=== PATIENT | female | born 1960 | race American Indian/Alaskan Native ===

== ENCOUNTER 2017-04-16 02:10 | Emergency (ER) | payer MEDICAID ==
[2017-04-16] MEDS ORDERED: XANAX PO ONE (02:42)
[2017-04-16] MEDS ORDERED: NACL 0.9% 1000 ML 1,000 ML IV ONE (03:03)
[2017-04-16 03:24] LABS: Basophils % (Auto) 0.5 % (0.0-1.8); Eosinophils % (Auto) 0.2 % (0.0-4.3); Hematocrit 40.8 % (30.3-42.9); Hemoglobin 13.6 gm/dl (10.1-14.3); Mean Corpuscular HGB Conc 33 % (30-34); Mean Corpuscular Hemoglobin 31 pg (28-32); Mean Corpuscular Volume 94 fl (79-97); Platelet Count 216 K/mm3 (140-440); Red Blood Count 4.34 M/mm3 (3.65-5.03); Red Cell Distribution Width 14.1 % (13.2-15.2); White Blood Count 8.1 K/mm3 (4.5-11.0)
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
[2017-04-16 03:48] LABS: Urine Drugs of Abuse Note Disclamer
[2017-04-16 04:05] LABS: Bilirubin,Urine NEG (Negative); Blood,Urine NEG (Negative); Ketones,Urine NEG (Negative); Leukocyte Esterase,Urine NEG (Negative); Nitrite,Urine NEG (Negative); Protein,Urine <15 mg/dL mg/dL (Negative); Urobilinogen,Urine < 2.0 mg/dL (<2.0)
[2017-04-16 04:13] LABS: Alanine Aminotransferase 9 units/L (7-56); Albumin 3.9 g/dL (3.9-5); Albumin/Globulin Ratio 1.5 %; Alkaline Phosphatase 95 units/L (35-129); Anion Gap 15 mmol/L; BUN/Creatinine Ratio 12.85; Bilirubin,Total < 0.20 mg/dL (0.1-1.2); Blood Urea Nitrogen 9 mg/dL (7-17); Calcium 10.6 mg/dL (8.4-10.2); Carbon Dioxide 26 mmol/L (22-30); Chloride 105.4 mmol/L (98-107); Glucose 110 mg/dL (65-100); Sodium 143 mmol/L (137-145); Total Protein 6.5 g/dL (6.3-8.2)
[2017-04-16] MEDS ORDERED: K-DUR PO ONE (04:36)
--- NOTE | 2017-04-16 04:43 | Cat Scan Report ---
FINAL REPORT PROCEDURE: CT HEAD/BRAIN WO CON TECHNIQUE: Computerized tomography of the head was performed without contrast material. HISTORY: altered ms COMPARISON: No prior studies are available for comparison. FINDINGS: Skull and scalp: Normal. Paranasal sinuses: Normal. Ventricles and subarachnoid spaces: Normal. Cerebrum: No evidence of hemorrhage, acute infarction or mass . Cerebellum and brainstem: No evidence of hemorrhage, acute infarction or mass. Vasculature: Normal. Comments: None. IMPRESSION: Normal Examination
[2017-04-16 07:00] VITALS: BP 111/53
== END 2017-04-16 07:10 | disposition home or self-care (01) ==
LOC: ED 02:10
DX: R55 Syncope and collapse (principal); J45.909 Unspecified asthma, uncomplicated; F12.10 Cannabis abuse, uncomplicated
CPT/HCPCS: 36415; 70450; 80053; 80307; 81001; 82140; 85025; 93005; 93010; 96360; 96361; 99285; J7030

== ENCOUNTER 2017-05-01 22:33 | Emergency (ER) | payer MEDICAID ==
[2017-05-01 22:54] VITALS: BP 123/79
[2017-05-01 23:37] LABS: Basophils % (Auto) 0.4 % (0.0-1.8); Eosinophils % (Auto) 0.2 % (0.0-4.3); Hematocrit 38.7 % (30.3-42.9); Hemoglobin 13.1 gm/dl (10.1-14.3); Mean Corpuscular HGB Conc 34 % (30-34); Mean Corpuscular Hemoglobin 32 pg (28-32); Mean Corpuscular Volume 94 fl (79-97); Platelet Count 224 K/mm3 (140-440); Red Blood Count 4.12 M/mm3 (3.65-5.03); Red Cell Distribution Width 13.7 % (13.2-15.2); White Blood Count 9.1 K/mm3 (4.5-11.0)
[2017-05-01 23:38] LABS: Anion Gap 16 mmol/L; BUN/Creatinine Ratio 13.75; Blood Urea Nitrogen 11 mg/dL (7-17); Calcium 11.5 mg/dL (8.4-10.2); Carbon Dioxide 27 mmol/L (22-30); Chloride 100.6 mmol/L (98-107); Glucose 113 mg/dL (65-100); Potassium 3.6 mmol/L (3.6-5.0); Sodium 140 mmol/L (137-145)
[2017-05-02 01:08] LABS: Bilirubin,Urine NEG (Negative); Blood,Urine NEG (Negative); Ketones,Urine NEG (Negative); Leukocyte Esterase,Urine LG (Negative); Mucus,Urine FEW /HPF; Nitrite,Urine NEG (Negative); Uric Acid Crystals,Urine 3+; Urobilinogen,Urine < 2.0 mg/dL (<2.0)
--- NOTE | 2017-05-02 14:56 | ED Elopement Review ---
ED Pt Elopement review - Results review Lab results: Laboratory Tests 05/01/17 05/01/17 05/01/17 23:06 23:06 23:47 WBC 9.1 RBC 4.12 Hgb 13.1 Hct 38.7 MCV 94 MCH 32 MCHC 34 RDW 13.7 Plt Count 224 Lymph % (Auto) 18.8 [place] % (Auto) 8.3 H Eos % (Auto) 0.2 Baso % (Auto) 0.4 Lymph # 1.7 [place] # 0.7 Eos # 0.0 Baso # 0.0 Seg Neutrophils % 72.3 H Seg Neutrophils # 6.5 Sodium 140 Potassium 3.6 Chloride 100.6 Carbon Dioxide 27 Anion Gap 16 BUN 11 Creatinine 0.8 Estimated GFR > 60 BUN/Creatinine Ratio 13.75 Glucose 113 H Calcium 11.5 H Urine Color Yellow Urine Turbidity Slightly-cloudy Urine pH 6.0 Ur Specific [place] 1.012 Urine Protein 30 mg/dl Urine Glucose (UA) Neg Urine Ketones Neg Urine Blood Neg Urine Nitrite Neg Urine Bilirubin Neg Urine Urobilinogen < 2.0 Ur Leukocyte Esterase Lg Urine WBC (Auto) 67.0 H Urine RBC (Auto) 10.0 U Epithel Cells (Auto) 3.0 Uric Acid Crystals 3+ Urine Mucus Few Urine Yeast (Budding) 2+ - Call Back decision Pt Call Back Decision: Call pt to return to ED [facility] (+ uti, needs eval and treatment)
== END 2017-05-02 04:07 | disposition left against medical advice (07) ==
LOC: ED 22:33
DX: R10.30 Lower abdominal pain, unspecified (principal); R30.0 Dysuria; R50.9 Fever, unspecified; Z53.21 Procedure and treatment not carried out due to patient leaving prior to being seen by health care provider
CPT/HCPCS: 36415; 80048; 81001; 85025